=== PATIENT | male | born 1940 | race African-American/Black ===

== ENCOUNTER → 2019-01-16 | Outpatient (CLI) | payer OTHER | LOC: ULTRA 12:29 | DX: M79.604 Pain in right leg (principal); Z78.9 Other specified health status ==

== ENCOUNTER 2019-07-06 14:46 | Emergency (ER) | payer OTHER ==
[~2019-07-06] VITALS: Ht 190.5 cm; Wt 89.4 kg
[2019-07-06] MEDS ORDERED: HYDROCHLOROTHIA25 M2 PO (14:53)
[2019-07-06] MEDS ORDERED: NORVASC 2.5 MG2.5 M1 PO (14:53)
[2019-07-06] MEDS ORDERED: ASA81BEC PO (14:53)
[2019-07-06] MEDS ORDERED: GLIMEPIRIDE1 MG PO (14:53)
[2019-07-06] MEDS ORDERED: METFORMIN HCL500 MG PO (15:02)
--- NOTE | 2019-07-06 16:38 | EKG ---
[facility] [place] [address] ELECTROCARDIOGRAM REPORT Name: JEN CRUZ Room #: [facility]#: [id number] Admission: 07/06/19 Attend Phys: Discharge: Date of : 38 Report #: [id number] THIS REPORT FOR: cc: Bertram Burger K. Steven DO Park, Jin S. MD ~ THIS REPORT FOR: //name// [facility] ED Test Date: 2019-07-06 Test Time: 15:10:54 Pat Name: JEN CRUZ Department: Room: Gender: Group Care Worker: [facility] : 1940 Requested By: Alexey Gonzalez Order Number: [id number] MD: Dl Yo Measurements Intervals [place] Rate: 75 P: 72 CT: 167 QRS: 33 QRSD: 93 T: 48 QT: 378 QTc: 423 Interpretive Statements Sinus rhythm Probable left atrial enlargement No previous ECG available for comparison Electronically Signed On 07-06-2019 16:37:40 SALON DESIGNER by Dl Yo [email or web address] <ELECTRONICALLY SIGNED> By: Dl Yo MD 07/06/19 1637 [id number] 1510 Dl Yo MD /J CARLOS
[2019-07-06 16:40] LABS: ABSOLUTE NEUTROPHILS 3.6 thou/uL (1.4-8.2); EOSINOPHILS 1.4 % (0.0-3.0); HEMATOCRIT 44.4 % (42.0-52.0); HEMOGLOBIN 14.5 gm/dL (14.0-18.0); LYMPHOCYTES 42.2 % (24.0-44.0); MCH 28.6 pg (26.0-34.0); MCHC 32.6 g/dL (28.0-37.0); MCV 87.6 fL (80.0-100.0); MONOCYTES 7.1 % (1.0-8.0); POLYS 48.3 % (36.0-66.0); RBC 5.07 mil/uL (4.50-6.00); RDW 13.8 % (10.5-14.5); WBC 7.3 thou/uL (4.0-11.0)
[2019-07-06 16:45] LABS: PLATELET COUNT 238 thou/uL (150-400)
[2019-07-06 16:58] LABS: APTT 27.5 Seconds (24.5-32.8); INR 1.1; PROTIME 10.7 Seconds (9.3-11.4)
[2019-07-06 16:59] LABS: ANION GAP 6 mmol/L (7-16); BUN 20 mg/dL (7-18); CALCIUM 10.4 mg/dL (8.5-10.1); CHLORIDE 100 mmol/L (98-107); CO2 32 mmol/L (21-32); CREATININE 1.3 mg/dL (0.7-1.3); GLUCOSE 104 mg/dL (74-106); POTASSIUM 3.7 mmol/L (3.5-5.1); SODIUM 138 mmol/L (136-145)
[2019-07-06 17:10] LABS: ALBUMIN 4.2 g/dL (3.4-5.0); LIPASE 177 U/L (73-393); SGOT 17 U/L (15-37); SGPT 17 U/L (30-65); TOTAL BILIRUBIN 0.5 mg/dL (<0.1-1.0); TROPONIN-I <0.06 ng/mL (<0.06)
[2019-07-06 17:55] LABS: URINE BILIRUBIN NEGATIVE (Negative); URINE BLOOD NEGATIVE (Negative); URINE CLARITY CLEAR; URINE COLOR YELLOW; URINE GLUCOSE-RANDOM* 1+ (Negative); URINE KETONES NEGATIVE (Negative); URINE LEUKOCYTES-REFLEX NEGATIVE (Negative); URINE NITRITE-REFLEX NEGATIVE (Negative); URINE PROTEIN (DIPSTICK) TRACE (Negative); URINE UROBILINOGEN 0.2 E.U./dl (0.2-1.0)
[2019-07-06] MEDS ORDERED: FLOMAX0.4 MG PO (17:55)
[2019-07-06 21:13] VITALS: BP 169/79
== END 2019-07-06 21:03 | disposition home or self-care (01) ==
LOC: ER 14:46
PROVIDERS: Emergency Medicine
DX: N40.1 Benign prostatic hyperplasia with lower urinary tract symptoms (principal); N13.30 Unspecified hydronephrosis; R33.9 Retention of urine, unspecified; I10 Essential (primary) hypertension; E11.9 Type 2 diabetes mellitus without complications; Z88.1 Allergy status to other antibiotic agents; Z88.0 Allergy status to penicillin; Z87.891 Personal history of nicotine dependence; Z79.899 Other long term (current) drug therapy

== ENCOUNTER 2020-05-03 14:36 | Inpatient (IN) | payer OTHER ==
[~2020-05-03] VITALS: Ht 182.9 cm; Wt 93.9 kg
[~2020-05-03 14:36] MED LIST: ASA81BEC PO; FLOMAX0.4 MG PO; GLIMEPIRIDE1 MG PO; HYDROCHLOROTHIA25 M2 PO; METFORMIN HCL500 MG PO; NORVASC 2.5 MG2.5 M1 PO
[2020-05-03 14:45] VITALS: BP 151/76
[2020-05-03 15:42] LABS: ABSOLUTE NEUTROPHILS 4.8 thou/uL (1.4-8.2); BASOPHILS 0.9 % (0.0-2.0); EOSINOPHILS 0.1 % (0.0-3.0); HEMATOCRIT 38.6 % (42.0-52.0); HEMOGLOBIN 12.5 gm/dL (14.0-18.0); LYMPHOCYTES 16.5 % (24.0-44.0); MCH 27.7 pg (26.0-34.0); MCHC 32.5 g/dL (28.0-37.0); MCV 85.2 fL (80.0-100.0); MONOCYTES 5.5 % (1.0-8.0); PLATELET COUNT 272 thou/uL (150-400); RBC 4.53 mil/uL (4.50-6.00); RDW 13.8 % (10.5-14.5); WBC 6.2 thou/uL (4.0-11.0)
[2020-05-03 15:50] LABS: ANION GAP 8 mmol/L (7-16); BUN 47 mg/dL (7-18); CALCIUM 9.1 mg/dL (8.5-10.1); CHLORIDE 98 mmol/L (98-107); CO2 27 mmol/L (21-32); GLUCOSE 257 mg/dL (74-106); POTASSIUM 5.2 mmol/L (3.5-5.1); SODIUM 133 mmol/L (136-145)
[2020-05-03 16:00] LABS: ALBUMIN 2.8 g/dL (3.4-5.0); SGOT 48 U/L (15-37); SGPT 32 U/L (16-63); TOTAL BILIRUBIN 0.5 mg/dL (0.2-1.0); TOTAL PROTEIN 8.2 g/dL (6.4-8.2); TROPONIN-I <0.06 ng/mL (<0.06)
--- NOTE | 2020-05-03 17:00 | NUR ---
RT AT BEDSIDE TO PROVIDE TX
[2020-05-03 17:15] VITALS: BP 163/81
[2020-05-03 17:40] VITALS: BP 163/81
[2020-05-03] MEDS ORDERED: OLMESARTAN MEDO20 MG PO (17:49)
[2020-05-03] MEDS ORDERED: FINASTERIDE5 MG PO (17:50)
[2020-05-03] MEDS ORDERED: HYDROCHLOROTH12.5 M2 PO (17:50)
[2020-05-03] MEDS ORDERED: TAMSULOSIN HCL0.4 MG PO (17:51)
[2020-05-03] MEDS ORDERED: METFORMIN HCL500 M1 PO (17:52)
[2020-05-03 18:20] VITALS: BP 158/75
[2020-05-03 20:02] LABS: MAGNESIUM 3.2 mg/dL (1.8-2.4); PHOSPHORUS 3.1 mg/dL (2.5-4.9)
[2020-05-03 21:33] LABS: URINE BILIRUBIN NEGATIVE (Negative); URINE BLOOD 1+ (Negative); URINE CLARITY CLEAR; URINE COLOR YELLOW; URINE GLUCOSE-RANDOM* NEGATIVE (Negative); URINE KETONES NEGATIVE (Negative); URINE LEUKOCYTES-REFLEX NEGATIVE (Negative); URINE NITRITE-REFLEX NEGATIVE (Negative); URINE PROTEIN (DIPSTICK) 2+ (Negative); URINE SPECIFIC GRAVITY 1.025 (1.005-1.035); URINE UROBILINOGEN 0.2 E.U./dl (0.2-1.0)
[2020-05-03 21:53] LABS: BACTERIA-REFLEX 1-9 Few /HPF (None Seen); CASTS None Seen /LPF (None Seen); CRYSTALS None Seen /LPF (None Seen); SQUAMOUS 0-3 Few /LPF (0-3); URINE RBC 3-10 Few /HPF (0-2); URINE WBC-REFLEX None Seen /HPF (0-5)
[2020-05-04 00:21] VITALS: BP 159/68
[2020-05-04] MEDS ORDERED: AMARYL2 M1 PO (00:24)
[2020-05-04] MEDS ORDERED: MAGNESIUM250 M1 PO (00:25)
[2020-05-04] MEDS ORDERED: VITAMIN C500 M1 PO (00:26)
[2020-05-04] MEDS ORDERED: GARLIC1000 MG PO (00:26)
[2020-05-04] MEDS ORDERED: LOSARTAN POTASS50 MG PO (00:28)
[2020-05-04] MEDS ORDERED: VITAMIN B122500 MCG PO (00:30)
[2020-05-04] MEDS ORDERED: VITAMIN B-6100 MG PO (00:31)
[2020-05-04 04:25] VITALS: BP 148/72
--- NOTE | 2020-05-04 04:30 | NUR ---
Arrived from ER around 18[address] Storm came in to see pt. as well as Dr. Yamilet Tyson. Lab called for COVID + result. Rosemary Whiteside ,PHYLLIS ,Dr. Yamilet Tyson and nursing supervisor shipfitters notified. Abdomen is protuberant upon initial assessment. Galindo cath inserted and had 4,800 ml out after insertion Pt. felt so relieved and abdomen is a lot softer and no more distention. MRSA swab, flu swabs A&B and urine sample sent to lab. Adm hx and assessment completed. Meds verified with patient. Maintaining O2 sat in the mid 90's on 3L/NC. He verbalized no shortness of breath lazaro after bladder got drained. updated on pt. condition. Pt. slept fair during the night.Repositioned prn .
[2020-05-04 06:22] LABS: ABSOLUTE NEUTROPHILS 4.2 thou/uL (1.4-8.2); BASOPHILS 0.1 % (0.0-2.0); HEMATOCRIT 37.1 % (42.0-52.0); HEMOGLOBIN 11.9 gm/dL (14.0-18.0); MCH 27.5 pg (26.0-34.0); MCHC 32.1 g/dL (28.0-37.0); MCV 85.6 fL (80.0-100.0); MONOCYTES 4.2 % (1.0-8.0); PLATELET COUNT 288 thou/uL (150-400); POLYS 83.7 % (36.0-66.0); RBC 4.33 mil/uL (4.50-6.00)
[2020-05-04 06:35] LABS: ALBUMIN 2.2 g/dL (3.4-5.0); ANION GAP 11 mmol/L (7-16); BUN 33 mg/dL (7-18); CALCIUM 8.7 mg/dL (8.5-10.1); CHLORIDE 103 mmol/L (98-107); CO2 25 mmol/L (21-32); CREATININE 1.4 mg/dL (0.7-1.3); DIRECT BILIRUBIN < 0.1 mg/dL (<0.1-0.2); GLUCOSE 274 mg/dL (74-106); MAGNESIUM 2.6 mg/dL (1.8-2.4); PHOSPHORUS 3.8 mg/dL (2.5-4.9); POTASSIUM 4.8 mmol/L (3.5-5.1); SGOT 41 U/L (15-37); SGPT 33 U/L (30-65); SODIUM 139 mmol/L (136-145); TOTAL BILIRUBIN 0.3 mg/dL (0.2-1.0); TOTAL PROTEIN 7.3 g/dL (6.4-8.2)
[2020-05-04 06:48] LABS: INR 1.1; PROTIME 11.5 Seconds (9.3-11.4)
[2020-05-04 07:45] VITALS: BP 164/69
--- NOTE | 2020-05-04 08:52 | EKG ---
[address] [place] [address] ELECTROCARDIOGRAM REPORT Name: JEN CRUZ Room #: 362-P ADM IN M.R.#: [id number] Admission: 05/03/20 Attend Phys: Leyla Storm MD Discharge: Date of : 38 Report #: [id number] [facility] ED Test Date: 2020-05-03 Test Time: 15:13:33 Pat Name: JEN CRUZ Department: Room: 362 Gender: M Supervisor Cabinetmaker: kf : 1940 Requested By: Vandana Rodriguez Order Number: [id number] : Miguelito Aguero Measurements Intervals [place] Rate: 105 P: 57 MD: 156 QRS: 41 QRSD: 94 T: 46 QT: 321 QTc: 425 Interpretive Statements Sinus tachycardia Left atrial enlargement Compared to ECG 07/06/2019 15:10:54 Sinus rhythm no longer present Electronically Signed On 05-04-2020 8:52:19 HELPER TEACHER by Miguelito Aguero [email or web address] <ELECTRONICALLY SIGNED> By: Miguelito Aguero MD, [facility] 05/04/20 0852 1513 1513 Miguelito Aguero MD, FACC /EPI
[2020-05-04 11:52] VITALS: BP 148/67
[2020-05-04 15:31] VITALS: BP 146/63
--- NOTE | 2020-05-04 18:13 | NUR ---
CATH CONT TO DRAIN BLOOD STAINED URINE. PATIENT STATES HE IS DOING VERY WELL. CONT ON O2 4L. HAS NOT VOICED COMPLAIN OF PAIN. ALERT X4. WILL CONT WITH PLAN OF CARE.
--- NOTE | 2020-05-04 21:46 | HC ---
[facility] [place] [address] CONSULTATION Name: JEN CRUZ Room #: 362-P [facility] IN M.R.#: [id number] Admission: 05/03/20 Attend Phys: Leyla Storm MD Discharge: Date of : 38 Report #: [id number] THIS REPORT FOR: cc: Bertram Burger K. Steven DO Geha, Daniel J. MD ~ DATE OF SERVICE: 05/03/2020 INFECTIOUS DISEASE CONSULTATION REASON FOR CONSULTATION: I was asked to evaluate concerning COVID-19 pneumonia with respiratory failure. HISTORY OF PRESENT ILLNESS: The patient is an 79-year-old with underlying history of diabetes, hypertension, bladder outlet obstruction with BPH, presents with a 1-week history of progressive shortness of breath, intermittent nonproductive cough. The patient denies headache, loss of taste or smell, chest pain, nausea, vomiting or diarrhea. He has had decreased urine output. No other abdominal, back or flank pain. He has had no travel. His has similar symptoms and has been evaluated as well. He presented to the Emergency Room where he was hypoxic. He is now on 3 liters of oxygen per nasal cannula. REVIEW OF SYSTEMS: A 14-point was negative other than what has been described above. He has had anorexia, but denies any diarrhea. ALLERGIES: AMOXICILLIN. MEDICATIONS: As noted on his MAR FAMILY HISTORY: Negative for tuberculosis. SOCIAL HISTORY: Past smoker, does use alcohol. PAST MEDICAL HISTORY: Hypertension, diabetes, BPH and outlet urinary issues. PHYSICAL EXAMINATION: VITAL SIGNS: He is afebrile, hemodynamically stable. GENERAL: He is alert and cooperative, in no acute distress. He is on 3 liters of oxygen per nasal cannula. SKIN: Without rash or decubitus. No palpable adenopathy. HEENT: Eyes without scleral icterus or conjunctivitis. Dentition in poor repair. He had multiple missing teeth. No other mucositis identified. NECK: Supple. LUNGS: Coarse breath sounds posteriorly without consolidation. HEART: Regular, tachycardic without murmur, gallop or rub. [facility] [address] [place] [address] CONSULTATION Name: CURTAmyJEN Annamarie Room #: 362-P [facility] IN M.R.#: [id number] Admission: 05/03/20 Attend Phys: Leyla Storm MD Discharge: Date of : 38 Report #: [id number] ABDOMEN: Protuberant, nontender. Had a palpable mass in the lower one-half of his abdomen. No hepatosplenomegaly identified. GENITOURINARY: External genitalia without lesion. RECTAL: Not performed. BACK: Spine was nontender. No CVA tenderness. NEUROLOGIC: Cranial nerves intact. Strength in his upper and lower extremities was symmetric and within normal limits. Mood was without anxiety or depression. LABORATORY DATA: Reviewed. MICROBIOLOGY DATA: Reviewed. Chest x-ray reviewed. Abdominal x-ray reviewed. IMPRESSION: 1. An 79-year-old with COVID-19 infection with bilateral pulmonary infiltrates and respiratory failure, now on oxygen supplementation. 2. Urinary retention with acute kidney injury. 3. Hypertension. 4. Diabetes. 5. Benign prostatic hypertrophy. RECOMMENDATIONS: We will continue combination antiviral therapy. Empiric antibiotic therapy pending culture results. Decompress his urinary bladder and check urinalysis and urine culture. I have Urology followup post-discharge. We will check serial laboratory studies including chemistry and chest x-ray. Control diabetes while hospitalized and on corticosteroids. <ELECTRONICALLY SIGNED> By: Alexey Tyson MD 05/04/206 56 2344 Alexey Tyson MD /nt
[2020-05-04 22:29] VITALS: BP 149/64
[2020-05-05 02:05] LABS: GLYCOHEMOGLOBIN (HGB A1C) 8.1 % (4.8-5.6)
[2020-05-05 05:05] VITALS: BP 132/60
--- NOTE | 2020-05-05 06:30 | NUR ---
Pt. slept better last night. Maintaining O2 sat in the low to mid 90's on 3L/NC. He denies being short of breath.Cont. on enhanced precaution,afebrile. Galindo had 600 ml during the night , some blood tinged urine in the tubing noted.
[2020-05-05 07:01] LABS: CALCIUM 8.8 mg/dL (8.5-10.1); CREATININE 1.2 mg/dL (0.7-1.3); DIRECT BILIRUBIN 0.1 mg/dL (<0.1-0.2); PHOSPHORUS 2.6 mg/dL (2.6-4.7); POTASSIUM 4.1 mmol/L (3.5-5.1); TOTAL BILIRUBIN 0.2 mg/dL (0.2-1.0); TOTAL PROTEIN 6.6 g/dL (6.4-8.2)
[2020-05-05 08:32] VITALS: BP 161/70
[2020-05-05 11:29] VITALS: BP 160/69
[2020-05-05 15:49] VITALS: BP 146/61
--- NOTE | 2020-05-05 16:05 | NUR ---
INITIAL ASSESSMENT: Received consult for discharge planning. SW reviewed chart and spoke with nursing and attending physician. Pt was admitted from home due to pnuemonia/respiratory failure. Pt placed in Enhanced Isolation due to COVID-19. Pt is afebrile and on 3L of O2. PT is on IV abx and IV steroids. Pt is completing course of Remdesivir. SW placed call to pt's room. No answer. MARIA ESTHER spoke with pt's , , via phone. Introduced role of SW. Pt and live at home. Prior to admission, pt was independent with ADLs. Pt drives. 2 steps to enter their home and no steps inside. No hx of HH services or post-acute placement. Pt's PCP is Dr. Kailash Burger. Pt's is agreeable with HH referral if needed at time of discharge. Options provided for HH agencies. No preference voiced. Pt's states she was tested for COVID in the ER at [facility] on the day pt was admitted. Results have not been called to pt's . SW provided contact info for the ER for results. PT/OT to be ordered to evaluate pt for discharge needs. SW is following to assist as needed with discharge planning.
--- NOTE | 2020-05-05 19:40 | NUR ---
RESTED IN BED. RESP. NON Labored. pleasant with cares. bourgeois in place draining clear yellow urine. minimal blood noted. attempted bladder scan but not locate bladder for measurement. he had 600ml output today. there maybe more urine givne the had so much fluids input.
[2020-05-05 20:31] VITALS: BP 157/70
[2020-05-06 04:50] VITALS: BP 164/93
--- NOTE | 2020-05-06 05:26 | NUR ---
Pt. stated he slept well during the night. Maintaining O2 sat in the mid 90's on 3L/NC. Denies being short of breath. Cont. on enhanced precaution,afebrile. Bed alarm on for safety. Josie had 1650 ml urine output this shift , no tinged blood noted this time. Making some progress towards care plan goals.
[2020-05-06 05:51] LABS: ALBUMIN 2.1 g/dL (3.4-5.0); CALCIUM 8.4 mg/dL (8.5-10.1); CREATININE 1.1 mg/dL (0.7-1.3); DIRECT BILIRUBIN 0.1 mg/dL (<0.1-0.2); PHOSPHORUS 2.9 mg/dL (2.6-4.7); POTASSIUM 4.2 mmol/L (3.5-5.1); TOTAL BILIRUBIN 0.3 mg/dL (0.2-1.0); TOTAL PROTEIN 5.8 g/dL (6.4-8.2)
[2020-05-06 07:35] VITALS: BP 168/76
[2020-05-06 11:13] VITALS: BP 171/69
--- NOTE | 2020-05-06 13:10 | NUR ---
MARIA ESTHER reviewed chart and spoke with nursing and attending physician. Pt remains in Enhanced Isolation due to COVID-19. Pt is afebrile and on 3L of O2. Pt is on IV abx and IV steroids. Pt is completing course of Remdesivir. PT/OT ordered today to evaluate pt for discharge needs. MARIA ESTHER faxed HH referral to [facility] for review. Pt may need to go home with a bourgeois catheter. MARIA ESTHER spoke with Ariela in intake to notify of new HH referral. MARIA ESTHER is following to assist as needed with discharge planning.
[2020-05-06 15:35] VITALS: BP 172/75
--- NOTE | 2020-05-06 17:26 | NUR ---
ASSUMED CARE OF PT AT 0700. PT ALERT AND ORIENTED IN NO ACUTE DISTRESS. HARD OF HEARING. COMPLAINS OF MILD LOWER ABD PAIN - PHYSICIAN AWARE. HYPERTENSIVE. CALLS APPROPRIATELY. WCM.
[2020-05-06 20:22] VITALS: BP 184/93
--- NOTE | 2020-05-07 00:03 | NUR ---
PT RESTING IN LOUNGE IN CHAIR AND REQUESTED TO RETURN BACK TO BED. O2 PER NC. SOA WITH CONVERSATION, LUNGS COARSE. PTS ABD DISTENDED FIRM, HUTCHINS TO DD. PT REFUSED HS LANTUS AND SCALE INSULIN. PRN FOR PAIN LOWER ABD PROVIDED. REMAINS NIKOLSKI, BED ALARM ON.
[2020-05-07 01:28] VITALS: BP 156/72
[2020-05-07 04:03] VITALS: BP 154/64
[2020-05-07 06:48] LABS: ALBUMIN 1.9 g/dL (3.4-5.0); CREATININE 1.2 mg/dL (0.7-1.3); DIRECT BILIRUBIN 0.1 mg/dL (<0.1-0.2); PHOSPHORUS 3.1 mg/dL (2.6-4.7); POTASSIUM 4.5 mmol/L (3.5-5.1); TOTAL BILIRUBIN 0.4 mg/dL (0.2-1.0); TOTAL PROTEIN 5.5 g/dL (6.4-8.2)
[2020-05-07 08:13] VITALS: BP 162/80
[2020-05-07 11:37] VITALS: BP 165/77
--- NOTE | 2020-05-07 13:39 | NUR ---
Nutrition: Pt seen for LOS, admitted with acute respiratory failure and COVID+. Pt continues with fair appetite. Wt's variable since admit though currently +12#. No c/o GI distress. No PU noted. Pt remains low nutrition risk at this time.
--- NOTE | 2020-05-07 15:50 | NUR ---
MARIA ESTHER reviewed chart and spoke with nursing and attending physician. Pt remains in Enhanced Isolation due to COVID-19. Pt is afebrile and on 3L of O2. Pt is on IV steroids and will complete course of Remdesivir today. Discharge home is anticipated for tomorrow. MARIA ESTHER spoke with Amanda in intake at [facility] to provide update. Pt will need a rest/exercise oximetry prior to discharge to determine home O2 needs. MARIA ESTHER spoke with pt's via phone to provide update and discuss discharge plan. Pt's is agreeable with plan for HH and possible home O2. Pt's family will be able to provide transportation home. MARIA ESTHER is following to assist as needed with discharge planning.
[2020-05-07 16:40] VITALS: BP 160/76
--- NOTE | 2020-05-07 18:33 | NUR ---
ASSUMED PATIENT CARE AT 0700. A/O X3. 4L/NC ON RESTTING. DESAT TO 80% WHEN PT/OT WORK WITH PATIENT. POOR APPETTITE. SLOWLY TOWARDS POC GOALS.
[2020-05-07 19:22] VITALS: BP 159/76
--- NOTE | 2020-05-07 22:06 | NUR ---
PT RESTNG IN BED WATCHING TV. O2 PER NC DOWN TO 3L. LUNGS COARSE. PT CONTINUES WITH LOOSE COUGH. ABD REMAINS DISTENDED. NO C/O PAIN. HUTCHINS TO DD. PT CONTINUES TO REFUSE HIS HS LANTUS AND SLIDING SCALE, STATED HE WILL GO INTO A DIABETIC COMA IF HE TAKES IT, HS FSBS 282.
[2020-05-08 04:22] VITALS: BP 180/84
[2020-05-08 08:17] VITALS: BP 188/88
[2020-05-08 09:54] LABS: HEMATOCRIT 42.5 % (42.0-52.0); HEMOGLOBIN 13.9 gm/dL (14.0-18.0); MCH 27.7 pg (26.0-34.0); MCHC 32.7 g/dL (28.0-37.0); MCV 84.7 fL (80.0-100.0); PLATELET COUNT 285 thou/uL (150-400); RBC 5.02 mil/uL (4.50-6.00); RDW 14.3 % (10.5-14.5); WBC 9.3 thou/uL (4.0-11.0)
[2020-05-08 10:00] VITALS: BP 188/88
[2020-05-08 11:11] LABS: ABSOLUTE NEUTROPHILS 7.9 thou/uL (1.4-8.2); ATYPICAL LYMPHS 2 %
[2020-05-08 11:12] LABS: ANISOCYTOSIS 1+; LARGE PLATELETS RARE; POLYCHROMASIA OCCASIONAL
[2020-05-08 12:07] VITALS: BP 168/78
[2020-05-08 12:41] LABS: HCO3 20.8 mmol/L (22.0-26.0); PCO2 27.5 mmHg (35.0-45.0); PO2 52.2 mmHg (80.0-100.0); pH 7.497 (7.360-7.450); sO2 90.3 % (92.0-98.0)
--- NOTE | 2020-05-08 14:19 | NUR ---
MARIA ESTHER reviewed chart and spoke with nursing and attending physician. Pt remains in Enhanced Isolation due to COVID-19. Pt is afebrile and requring 3-5L of O2. Pt is on IV steroids. Rest/exercise oximetry ordered to determine home O2 needs. Unsure when pt will be ready for discharge home. MARIA ESTHER updated Amanda in intake at [facility]. MARIA ESTHER faxed referral to [facility], should pt need home O2. Finalized discharge orders/summary will need to be faxed to . Rest/exercise oximetry and script will need to be faxed to [facility]. Contact info for both providers placed in pt's discharge summary. Pt's family to provide transportation home when discharged. MARIA ESTHER is following to assist as needed with discharge planning. [facility]-- [facility]--
[2020-05-08 16:18] VITALS: BP 166/84
--- NOTE | 2020-05-08 18:26 | NUR ---
ASSUMED PATIENT CARE AT 0700. A/O X4. PATIENT INCREASED O2 NEED FROM 3L TO GL. ABG REPORTED TO DR GARAY. CH OF CHEST DONE. WILL KEEP MONITOR.
[2020-05-08 19:49] VITALS: BP 157/72
--- NOTE | 2020-05-08 23:14 | NUR ---
RT OFFERED BIPAP. PT DOES NOT PREFER TO WEAR THIS. KEEPING OXYGEN SATS AROUND 93%, 4.0 LITERS N/C.
[2020-05-09 03:53] VITALS: BP 148/78
--- NOTE | 2020-05-09 04:24 | NUR ---
continues on the 4 liters n/c. denies pain. he refused his insulin tonight. he did not feel that he has been eating and that his blood sugar was ok. he also refused to wea the bipap tonight. resting quietly. no concerns voiced.
[2020-05-09 07:39] VITALS: BP 146/81
[2020-05-09 09:19] LABS: BE(vivo) 0.5 mmol/L (-2 to +3); HCO3 23.2 mmol/L (22.0-26.0); PCO2 31.9 mmHg (35.0-45.0); PO2 54.4 mmHg (80.0-100.0); pH 7.479 (7.360-7.450); sO2 90.7 % (92.0-98.0)
[2020-05-09 09:54] LABS: CALCIUM 8.3 mg/dL (8.5-10.1); CREATININE 1.1 mg/dL (0.7-1.3); MAGNESIUM 1.9 mg/dL (1.8-2.4); POTASSIUM 4.8 mmol/L (3.5-5.1); TOTAL BILIRUBIN 0.4 mg/dL (0.2-1.0); TOTAL PROTEIN 5.7 g/dL (6.4-8.2)
[2020-05-09 11:20] VITALS: BP 160/79
[2020-05-09 15:26] VITALS: BP 151/78
--- NOTE | 2020-05-09 18:35 | NUR ---
RECEIVED ABG FROM RT. PUT PATIENT ON BIPAP THAT LAST NIGHT PATIENT WASNT ON BIPAP. NOTIFIED DR PENN. SLOWLY TOWARDS POC GOALS.
[2020-05-09 21:06] VITALS: BP 138/70
[2020-05-10 05:19] VITALS: BP 141/79
--- NOTE | 2020-05-10 06:00 | NUR ---
Pt. slept well with BIPAP on at 50%. Maintained O2 sat in the mid to upper 90's. One time dose of lasix IV 40 mg given last night per Dr. Ray. Emptied 2000 ml of urine from bourgeois. SR per tele. Cont. on enhanced precaution , afebrile.
[2020-05-10 07:39] VITALS: BP 142/62
[2020-05-10 11:11] VITALS: BP 142/61
[2020-05-10 15:45] VITALS: BP 131/69
--- NOTE | 2020-05-10 15:57 | NUR ---
assumed care of pt at 0700. pt aox4 hard of hearing in no acute distress. on bipap overnight. currently on 7-8L NC. voicing no complaints. poor appetite, says he does not like the food. bourgeois in place. wcm.
[2020-05-10 20:10] VITALS: BP 136/62
[2020-05-11 05:10] VITALS: BP 143/61
--- NOTE | 2020-05-11 06:14 | NUR ---
FOLLOWING POC WITH 02 SATURATION ON 5L NC. HUTCHINS IN PLACE WITH GOOD DRAINAGE. LOW LOSS AIR PUMP ACTIVE.
[2020-05-11 07:38] VITALS: BP 131/48
[2020-05-11 12:16] VITALS: BP 137/63
[2020-05-11 16:24] VITALS: BP 151/57
[2020-05-11 20:43] VITALS: BP 145/73
[2020-05-12 03:46] VITALS: BP 152/74
[2020-05-12 06:19] LABS: HEMATOCRIT 39.8 % (42.0-52.0); HEMOGLOBIN 12.7 gm/dL (14.0-18.0); MCH 27.1 pg (26.0-34.0); MCV 84.6 fL (80.0-100.0); RBC 4.7 mil/uL (4.50-6.00); RDW 14.4 % (10.5-14.5); WBC 8.4 thou/uL (4.0-11.0)
[2020-05-12 06:34] LABS: CREATININE 1.2 mg/dL (0.7-1.3); POTASSIUM 5.1 mmol/L (3.5-5.1)
--- NOTE | 2020-05-12 07:14 | NUR ---
PT ATTEMPTED 3X TO HAVE BM OVERNIGHT WITHOUT SUCCESS. SPOKE TO AM NURSE ABOUT GETTING MAG CITRATE FOR PT. VSS, AFEBRILE AND ONLY COMPLAINT WAS DINNER. PT DID NOT EAT ANY OF EVENING MEAL. BROUGHT PT SANDWICH TRAY AND PT ATE 100%. PT UP TO BSC WITH SBA. CALL LIGHT WITHIN REACH.
[2020-05-12 08:26] VITALS: BP 158/76
--- NOTE | 2020-05-12 14:02 | NUR ---
MARIA ESTHER reviewed chart and spoke with nursing and attending physician. Pt remains in Enhanced Isolation due to COVID-19. Pt is afebrile and on 4L of O2. Pt is on IV steroids. Pt is progressing towards goals for discharge. Recommendation made for pt to go to SNF for post-acute care. MARIA ESTHER spoke with pt's via phone to discuss SNF placement. Options provided. Pt's requested referral to be sent to [facility] due to location. Pt's states that she would prefer pt to stay on the [place] side and that he would not want to go to [place]. MARIA ESTHER placed call to pt's room. No answer. MARIA ESTHER faxed referral to [facility] and notified liaison. Awaiting input at this time. Discharge anticipated in 1-2 days. MARIA ESTHER is following to assist as needed with discharge planning.
[2020-05-12 15:29] VITALS: BP 145/78
[2020-05-12 20:33] VITALS: BP 153/773
[2020-05-13 01:06] VITALS: BP 153/73
[2020-05-13 04:05] VITALS: BP 148/67
[2020-05-13 07:38] VITALS: BP 142/67
[2020-05-13 11:36] VITALS: BP 150/70
--- NOTE | 2020-05-13 14:41 | NUR ---
MARIA ESTHER reviewed chart and spoke with nursing and attending physician. Pt remains in Enhanced Isolation due to COVID-19. Pt is afebrile and on 4L of O2. Pt is on IV steroids. Pt is progressing towards goals for discharge. MARIA ESTHER placed call to pt's room. No answer. MARIA ESTHER spoke with pt's via phone to provide update and discuss discharge plan: post-acute placement v. home with HH. Pt's states they want pt to come home, but if it is recommended that pt go to SNF, they will be agreeable, if pt is agreeable. MARIA ESTHER requested attending physician discuss SNF placement with pt. MARIA ESTHER is following to assist as needed with discharge planning.
[2020-05-13 17:01] VITALS: BP 152/87
--- NOTE | 2020-05-13 17:26 | NUR ---
ASSUMED PATIENT CARE AT 0700. A/O X4. 4L/NC ON RESTTING. NEED 15L/NC 02 WHEN WALKING. NOT TOWARDS POC GOALS.
--- NOTE | 2020-05-13 19:18 | NUR ---
assumed patient care at 0700. a/o x4. on 4l/nc. need increased 02 when get up. slowly towards poc goals.
[2020-05-13 19:53] VITALS: BP 132/70
[2020-05-14 04:00] VITALS: BP 138/73
--- NOTE | 2020-05-14 04:02 | NUR ---
ASSUMED CARE OF PT. PT A&OX4. WAINWRIGHT. EVENING MEDS GIVEN AND PT MARIA C IT WELL. O2 98% ON 4L. FOLLEY INTACT DUE TO RETENSION. BSG CHECKED AND INSULIN GIVEN. NO FURTHER SIGNS OF DISCOMFORT. WILL CONT WITH POC TILL EOS.
[2020-05-14 07:52] VITALS: BP 156/73
--- NOTE | 2020-05-14 09:05 | NUR ---
Nutrition followup: pt continues on [address] unit, COVID + requiring up to 15 L O2. PO intake fair, 25-75% of meals. S/W pt over phone who feels he is eating more. Also states drinking Nepro daily which adds additional 425 kcals, 19 gm protein daily. Weights 204-208#. 2 higher weights 218-219# appear inaccurate. Pt unable to verbalize UBW, very [place]. BG 100-317. Hx DM/steroid. Not currently on carb controlled diet, follow BG and intake trends for need to add to diet order. REC D/C Renal restriction-not indicated. Continue as low nutrition risk
[2020-05-14 11:14] VITALS: BP 137/72
--- NOTE | 2020-05-14 15:03 | NUR ---
SW reviewed chart and spoke with nursing and attending physician. Pt remains in Enhanced Isolation due to COVID-19. Pt is afebrile and on IV steroids. Pt is on 4L of O2 at rest and requires up to 15L of O2 with activity. Pt is not ready for discharge. Family to discuss with pt about going to post-acute care facility prior to returning home. SW is following to assist as needed with discharge planning.
[2020-05-14 15:42] VITALS: BP 137/63
--- NOTE | 2020-05-14 18:14 | NUR ---
ASSUMED PATIENT CARE AT 0700. A/O X4. TOLERATED 02 4L BUT NEEDS 15L WHEN WALKING. NOT TOWARDS POC GOALS.
[2020-05-14 22:19] VITALS: BP 141/66
--- NOTE | 2020-05-15 04:53 | NUR ---
continues on 4 liters n/c. denies pain. calls approp for assist. unable to coolect sputum, no productive cough. careplan reviewed.
[2020-05-15 05:52] VITALS: BP 138/57
[2020-05-15 07:39] VITALS: BP 131/69
--- NOTE | 2020-05-15 13:44 | NUR ---
MARIA ESTHER reviewed chart and spoke with nursing and attending physician. Pt remains in Enhanced Isolation due to COVID-19. Pt is afebrile and requiring O2. Pt is on 4L at rest and needs O2 to be increased with activity. Pt is on IV steroids. MARIA ESTHER spoke with pt via phone to discuss discharge plan. Pt states he does not want to go to a facility. Pt wants to go home when discharged. SW discussed have home health and home O2. Pt agreeable. MARIA ESTHER spoke with pt's via phone to provide update and discuss discharge. Pt's and family do want pt to come home when discharged. [facility] following and [facility] is able to provide home O2 to pt. Will need rest/exercise oximetry prior to discharge. MARIA ESTHER updated and [facility] liaisons. MARIA ESTHER is following to assist as needed with discharge planning.
[2020-05-15 16:31] VITALS: BP 117/47
--- NOTE | 2020-05-15 19:20 | NUR ---
PROGRESSING TOWARDS POC GOALS
[2020-05-15 19:52] VITALS: BP 118/53
[2020-05-16 05:10] VITALS: BP 124/65
[2020-05-16 07:50] VITALS: BP 114/45
--- NOTE | 2020-05-16 13:17 | NUR ---
MARIA ESTHER reviewed chart and spoke with nursing and attending physician. Pt remains in Enhanced Isolation due to COVID-19. Pt is afebrile and requiring O2. Pt needing up to 10L with activity. No weekend disharge planned. Pt wanting to discharge home with and Home O2. Pt has been accepted on service with [facility] and [facility] is able to provide home O2 for pt. Will need a rest/exercise oximetry completed prior to discharge to determine pt's home O2 needs. MARIA ESTHER updated and [facility] liaison. MARIA ESTHER is following to assist as needed with discharge planning.
[2020-05-16 15:50] VITALS: BP 105/47
--- NOTE | 2020-05-16 17:59 | NUR ---
ASSUMED PATIRNT CARE AT 0700. A/O X4. STILL NEED 1OL O2 WHEN WALKING. SLOWLY TOWARDS POC GOALS.
[2020-05-16 21:04] VITALS: BP 127/53
[2020-05-17 04:41] VITALS: BP 125/59
--- NOTE | 2020-05-17 05:04 | NUR ---
ASSUMED CARE OF PT AT 1900HRS. PT AOX4 AND LETS NEEDS BE KNOWN. FALL PRECAUTION IN PLACE. O2 CONTINUED VIA NC AT 2L. INCREASED NEED FOR O2 WITH ACTIVITY. PT DENIED PAIN OR NAUSEA. ASSESSMENT CHARTED. PT WAS ABLE TO FET COMFORTABLE AND SLEEP PART OF THE SHIFT. VSS AND NO S/S OF ACUTE DISTRESS. WILL CONTINUE TO MONITOR.
[2020-05-17 08:20] VITALS: BP 122/60
[2020-05-17 15:31] VITALS: BP 122/66
--- NOTE | 2020-05-17 18:28 | NUR ---
no change. progressing towards poc goals.
[2020-05-17 19:55] VITALS: BP 119/59
--- NOTE | 2020-05-18 04:32 | NUR ---
RESTING QUIETLY TONIGHT. DENIES PAIN. SITTING UP TALL TONIGHT AT BEDTIME WATCHING THE FOOTBALL GAME. CAREPLAN REVIEWED. NO CONCERNS VOICED.
[2020-05-18 04:34] VITALS: BP 148/63
[2020-05-18 07:38] VITALS: BP 147/75
[2020-05-18 15:53] VITALS: BP 105/64
--- NOTE | 2020-05-18 17:44 | NUR ---
WALK WITH PATIENT TWO TIMES IN ROOM. DESAT TO 87% AFTER WALKED 60F IN AM ON 2L/NC. NEED 8L WHEN FINISHED USE BATHROOM. DIDNT DESAT WITH AFTERNOON WALK. ENCOURAGE IS UES. PROGRESSING TOWARDS POC GOALS.
[2020-05-18 20:10] VITALS: BP 119/64
--- NOTE | 2020-05-18 21:33 | NUR ---
PT WATCHING TV, TALKATIVE, SMILING. PT STATED HE FELT GOOD TODAY WHEN HE AMBULATED. O2 PER NC. HUTCHINS TO DD. PT PROVIDED HS SNACK. LUNGS WHEEZES. PT REFUSED INSULIN. BED ALARM ON.
[2020-05-19 03:38] VITALS: BP 120/66
[2020-05-19 07:53] VITALS: BP 118/58
[2020-05-19 14:26] VITALS: BP 188/88
[2020-05-19 16:04] VITALS: BP 109/55
--- NOTE | 2020-05-19 16:05 | NUR ---
DISCHARGE NOTE: MARIA ESTHER reviewed chart and spoke with nursing and attending physician. Pt remains in Enhanced Isolation. Pt is medically stable for discharge home today. Orders written for HH. Rest/exercise oximetry completed. Pt will need home O2. 4L with activity. MARIA ESTHER obtained script for home O2. Faxed script, rest/exercise oximetry results to [facility]. Notified liaison. Portable O2 tank to be delivered to the hospital prior to discharge. MARIA ESTHER faxed finalized discharge orders/summary to [facility]. Confirmed info was received. MARIA ESTHER spoke with pt's via phone. Pt's was unaware of pt discharging home today. SW explained that pt will have HH and Home O2. Pt's is agreeable with discharge plan. Pt's family to provide transportation home. Contact info for HH and [facility] placed in pt's discharge summary. No additional SW needs identified at this time, but is available to assist should needs arise.
[2020-05-19 17:26] VITALS: BP 188/88
== END 2020-05-19 17:46 | disposition home health service (06) | DRG 871 ==
LOC: ER 14:36 → EROBS 16:49 → 3W 16:49
PROVIDERS: Internal Medicine; Physician Assistant; Specialist; ADMIT Internal Medicine; ATTEND Internal Medicine
PROC: XW033E5 Introduction of Remdesivir Anti-infective into Peripheral Vein, Percutaneous Approach, New Technology Group 5 (ICD-10-PCS; principal; 2020-05-03)
PROC: 5A09357 Assistance with Respiratory Ventilation, Less than 24 Consecutive Hours, Continuous Positive Airway Pressure (ICD-10-PCS; 2020-05-09)
PROC: 5A0935A Assistance with Respiratory Ventilation, Less than 24 Consecutive Hours, High Flow/Velocity Cannula (ICD-10-PCS; 2020-05-10)
PROC: 5A09357 Assistance with Respiratory Ventilation, Less than 24 Consecutive Hours, Continuous Positive Airway Pressure (ICD-10-PCS; 2020-05-10)
PROC: 5A09357 Assistance with Respiratory Ventilation, Less than 24 Consecutive Hours, Continuous Positive Airway Pressure (ICD-10-PCS; 2020-05-11)
PROC: 5A09357 Assistance with Respiratory Ventilation, Less than 24 Consecutive Hours, Continuous Positive Airway Pressure (ICD-10-PCS; 2020-05-12)
PROC: 5A09357 Assistance with Respiratory Ventilation, Less than 24 Consecutive Hours, Continuous Positive Airway Pressure (ICD-10-PCS; 2020-05-14)
DX: A41.89 Other specified sepsis (principal); U07.1 COVID-19; J96.01 Acute respiratory failure with hypoxia; G92 Toxic encephalopathy; J12.82 Pneumonia due to coronavirus disease 2019; N17.9 Acute kidney failure, unspecified; N40.1 Benign prostatic hyperplasia with lower urinary tract symptoms; I10 Essential (primary) hypertension; E11.9 Type 2 diabetes mellitus without complications; R53.81 Other malaise; I25.10 Atherosclerotic heart disease of native coronary artery without angina pectoris; K59.00 Constipation, unspecified; R33.8 Other retention of urine; Z79.899 Other long term (current) drug therapy; Z79.84 Long term (current) use of oral hypoglycemic drugs; Z88.1 Allergy status to other antibiotic agents; Z88.0 Allergy status to penicillin; Z87.891 Personal history of nicotine dependence
CPT/HCPCS: 10779; 10879